=== PATIENT | female | born 1980 | race Caucasian/White ===

== ENCOUNTER 2022-07-02 13:08 | Emergency (ER) | payer OTHER ==
[~2022-07-02] VITALS: Ht 152.4 cm; Wt 61.8 kg
[2022-07-02 13:27] VITALS: BP 119/87
--- NOTE | 2022-07-02 13:27 | NUR ---
41 y/o female biba from dialysis, pt finished dialysis today and states amr was called after nurse at facility states the right sided chest port may have broken/cracked. a&ox4, does not ambulate, pt has right bka. skin pink/warm/dry. pt has another dialysis port on right upper arm. denies any pain at this time. denies cough, fever, cp, sob, n/v/d, or sore throat. pmh: renal disease, dialysis (monday, , monday) [facility]
[2022-07-02] MEDS ORDERED: MORPHINE SULFATE 4 MG/ML SYR IVP ONE (13:40)
[2022-07-02] MEDS ORDERED: LIDOCAINE/EPI MPF 1%1:200000 30 ML VIAL INJ ONE (13:40)
--- NOTE | 2022-07-02 13:58 | NUR ---
kai liang at bedside for cath removal. consent signed at this time
[2022-07-02] MEDS ORDERED: ONDANSETRON 4 MG/2 ML VIAL IVP ONE (14:10)
[2022-07-02] MEDS ORDERED: ONDANSETRON 4 MG/2 ML VIAL ONE (14:10)
--- NOTE | 2022-07-02 14:17 | NUR ---
2 lb sandbag applied, area does not appear to be bleeding at this time, pt called father for sweet pickled fruit maker
[2022-07-02 14:18] VITALS: BP 119/87
--- NOTE | 2022-07-02 14:18 | NUR ---
Patient discharged with v/s stable. Written and verbal after care instructions given and explained. Patient verbalized understanding. Wheel Chair Assisted with father to car. All questions addressed prior to discharge. Advised to follow up with PMD.
== END 2022-07-02 14:18 | disposition home or self-care (01) ==
LOC: MED 13:08
DX: T82.41XA Breakdown (mechanical) of vascular dialysis catheter, initial encounter (principal); E11.9 Type 2 diabetes mellitus without complications; I10 Essential (primary) hypertension; Z86.73 Personal history of transient ischemic attack (TIA), and cerebral infarction without residual deficits; Z98.890 Other specified postprocedural states; Y92.89 Other specified places as the place of occurrence of the external cause
CPT/HCPCS: 36589; 96374; 96375; 99284; J2001; J2270; J2405